=== PATIENT | male | born 1945 | race Caucasian/White ===

== ENCOUNTER 2017-01-25 09:26 | Emergency (ER) | payer OTHER ==
[~2017-01-25] VITALS: Wt 78.0 kg
[~2017-01-25 09:26] MED LIST: HYD25 PO; LISI-313 PO; METF500T4 PO
[2017-01-25] MEDS ORDERED: LISI-313 PO (10:45)
[2017-01-25] MEDS ORDERED: METF500T4 PO (10:45)
[2017-01-25] MEDS ORDERED: HYD25 PO (10:45)
--- NOTE | 2017-01-25 10:49 | ERD ---
ER Documentation Chief Complaint Date/Time DATE: 01/25/17 TIME: 10:46 Chief Complaint MED REFILL HPI 71-year-old male history of diabetes and hypertension who presents for medication refill. A full time staff interpreter was used. He ran out of his medications 3 days ago. He has an appointment with his primary care doctor on Saturday. He has noted elevated blood pressure but no chest pain or shortness breath no significant headaches numbness or tingling. No polyuria polydipsia polyphagia. ROS All systems reviewed and are negative except as per history of present illness. Medications Home Meds Active Scripts Metformin* (Glucophage*) 500 Mg Tab, 500 MG PO BID for 30 Days, TAB Prov:POWER SIMPSON MD 01/25/17 Lisinopril* (Lisinopril*) 5 Mg Tablet, 5 MG PO DAILY, #30 TAB Prov:POWER SIMPSON MD 01/25/17 Hydrochlorothiazide* (Hydrochlorothiazide*) 25 Mg Tab, 25 MG PO DAILY, #30 TAB Prov:POWER SIMPSON MD 01/25/17 Hydrochlorothiazide* (Hydrochlorothiazide*) 25 Mg Tab, 25 MG PO DAILY, #30 TAB Prov:GUSTAVO ROMERO DO 11/16/15 Metformin* (Glucophage*) 500 Mg Tab, 500 MG PO BID, #28 TAB Prov:GUSTAVO ROMERO DO 11/16/15 Reported Medications Lisinopril* (Lisinopril*) 5 Mg Tablet, 5 MG PO DAILY, #30 TAB 11/16/15 Allergies Allergies: Coded Allergies: No Known Allergy (Unverified , 11/23/15) PMhx/Soc History of Surgery: Yes (HERNIATED DISC) Anesthesia Reaction: No Hx Neurological Disorder: No Hx Respiratory Disorders: No Hx Cardiac Disorders: Yes (HTN) Hx Psychiatric Problems: No Hx Miscellaneous Medical Probl: Yes (DM) Hx Alcohol Use: No Hx Substance Use: No Hx Tobacco Use: No FmHx Family History: diabetes Physical Exam Vitals Vital Signs Date Time Temp Pulse Resp B/P Pulse Ox O2 Delivery O2 Flow Rate FiO2 01/25/17 09:29 98.0 65 18 182/98 98 Physical Exam General: Well developed, well nourished, no acute distress Head: Normocephalic, atraumatic. Eyes: Pupils equally reactive, EOM intact ENT: Moist mucous membranes Neck: Supple, no lymphadenopathy Respiratory: Lungs clear bilaterally, no distress Cardiovascular: RRR, no murmurs, rubs, or gallops Abdominal: Soft, non-tender, non-distended, no peritoneal signs : Deferred MSK: No edema, no unilateral swelling, 5/5 strength Neurologic: Alert and oriented, moving all extremities, normal speech, no focal weakness, no cerebellar signs Skin: No rash Psych: Normal mood Procedures/MDM Patient's blood pressure was elevated (>120/80) but appears stable without evidence of hypertensive emergency or urgency. The patient was counseled about the risks of hypertension and urged to pursue outpatient monitoring and therapy within a week with their primary care physician. The patient will be given his prescriptions. The patient does not recall the names of the medications but looking through the patient's electronic medical record it appears he takes hydrochlorothiazide lisinopril and metformin. The patient thinks that this is right. He was advised to confirm this with his primary care physician on Saturday. No indication for rapidly lowering his blood pressure in the ER today. We discussed follow up with the patient's primary care doctor within 24 to 48 hours as needed. We also discussed return to the emergency room for worsening symptoms or worsening condition. Outpatient referral: [None required] Discharge Medications: Hydrochlorothiazide 25 mg daily, lisinopril 5 mg daily, metformin 500 twice daily Departure Diagnosis: Primary Impression: Encounter for medication refill Additional Impression: Essential hypertension Condition: Stable Patient Instructions: Taking Medicine Safely [facility] Usted se moscoso hecho un examen mdico de control que le indica que no est en dane condicin que requiera tratamiento urgente en el Departamento de Emergencia. Un estudio ms profundo y el tratamiento de trujillo condicin pueden esperar sin ningn riesgo hasta que usted sea atendida/o en el consultorio de trujillo mdico o dane cl nona. Es responsabilidad suya arreglar dane justin para el seguimiento del sangeeta. MANEJO DE CONDICIONES NO URGENTES EN EL FUTURO 1) Si usted tiene un mdico de atencin primaria: Usted debera llamar a trujillo mdico de atencin primaria antes de venir al departamento de emergencia. Despus de las horas de consultorio, trujillo doctor o trujillo asociado/a est disponible por telfono. El mdico o enfermero de edison en el servicio telefnico puede asesorarle por donna medio para atender el problema, o sangeeta contrario se puede programar dane justin. 2) Si usted no tiene un mdico de atencin primaria: Llame al mdico o clnica de referencia que aparece abajo marino las horas de consultorio para hacer dane justin para que le vean. CLINICAS: [facility] [phone] [facility] [phone] [facility] [phone] [facility] [phone] [address] [facility] [phone] [address] [facility]. [phone] [facility] [facility] () Usted se moscoso hecho un examen mdico de control que le indica que no est en dane condicin que requiera tratamiento urgente en el Departamento de Emergencia. Un estudio ms profundo y el tratamiento de trujillo condicin pueden esperar sin ningn riesgo hasta que ted sea atendida/o en el consultorio de trujillo mdico o dane cl nona. Es responsabilidad suya arreglar dane justin para el seguimiento del sangeeta. MANEJO DE CONDICIONES NO URGENTES EN EL FUTURO 1) Si usted tiene un mdico de atencin primaria: Usted debera llamar a trujillo mdico de atencin primaria antes de venir al departamento de emergencia. Despus de las horas de consultorio, trujillo doctor o trujillo asociado/a est disponible por telfono. El mdico o enfermero de edison en el servicio telefnico puede asesorarle por donna medio para atender el problema, o sangeeta contrario se puede programar dane justin. 2) Si usted no tiene un mdico de atencin primaria: Llame al mdico o condado institucions de referencia que aparece abajo marino las horas de consultorio para hacer dane justin para que le vean. SI USTED NO PUEDE PAGAR PARA FREDY UN MEDICO puede ir a: [facility] [address] [place] [address] [facility] [address] [place] [address] [facility] [address] [place] [address] [facility]A [facility] [address] [place] [address] Additional Instructions: Llame al doctor MAANA y rudi dane JUSTIN PARA DENTRO DE 2-3 DONAHUE.Dgale a la secretaria que nosotros le instruimos hacer esta justin.Avise o llame si trujillo condicin se empeora antes de la justin. Regresa aqui si peor o no mejor. POWER SIMPSON MD Jan 25, 2017 10:49
== END 2017-01-25 10:49 | disposition home or self-care (01) ==
LOC: FTE 09:26
DX: Z76.0 Encounter for issue of repeat prescription (principal); I10 Essential (primary) hypertension; E11.9 Type 2 diabetes mellitus without complications; Z79.84 Long term (current) use of oral hypoglycemic drugs
CPT/HCPCS: 99281

== ENCOUNTER 2017-06-25 20:35 | Inpatient (IN) | END 2017-07-08 19:05 | DRG 432 ==

== ENCOUNTER 2017-09-07 22:40 | Inpatient (IN) | END 2017-09-11 18:17 | disposition home or self-care (01) | DRG 438 ==